=== PATIENT | male | born 1945 | race Caucasian/White ===

== ENCOUNTER → 2019-02-15 | Outpatient (CLI) | payer MEDICARE ==
[~2019-02-15] MED LIST: MULT-658 PO; coq-10 PO
== END | disposition home or self-care (01) ==
LOC: STAR 08:51
PROVIDERS: ATTEND Family Medicine
DX: D21.4 Benign neoplasm of connective and other soft tissue of abdomen (principal); Z01.818 Encounter for other preprocedural examination
CPT/HCPCS: 93005

== ENCOUNTER 2019-02-21 09:00 | Inpatient (IN) | payer MEDICARE ==
[~2019-02-21] VITALS: Ht 177.8 cm; Wt 92.1 kg
[~2019-02-21 09:00] MED LIST changes: +BUPIVACAINE/PF-EPI 0.5% 1:200K ONE
[2019-02-21] MEDS ORDERED: MIDAZOLAM 1 MG/ML, 2ML ONE (09:57)
[2019-02-21] MEDS ORDERED: FENTANYL PF 250 MCG/5ML ONE (09:57)
[2019-02-21] MEDS ORDERED: LACTATED RINGERS 1,000 ML IV SCH (10:00)
[2019-02-21] MEDS ORDERED: LIDOCAINE-MPF 1%, 2ML INFIL ONE (10:00)
[2019-02-21] MEDS ORDERED: DEXMEDETOMIDINE 200 MCG/2 ML ONE (10:42)
[2019-02-21] MEDS ORDERED: KETAMINE 10 MG/ML, 20ML ONE (10:42)
[2019-02-21] MEDS ORDERED: SUGAMMADEX 200 MG/2 ML IVPush ONE (10:42)
[2019-02-21] MEDS ORDERED: HALOPERIDOL 5 MG/ML IV PRN (11:30)
[2019-02-21] MEDS ORDERED: OXYcodone 5 MG/5 ML ORAL.SOL UDC PO PRN (11:30)
[2019-02-21] MEDS ORDERED: hydrALAzine 20 MG/ML, 1ML IV PRN (11:30)
[2019-02-21] MEDS ORDERED: PROMETHAZINE 25 MG/ML, 1ML IV PRN (11:30)
[2019-02-21] MEDS ORDERED: MEPERIDINE/PF 25MG/0.5ML IVPush PRN (11:30)
[2019-02-21] MEDS ORDERED: ACETAMINOPHEN 325 MG TABLET PO PRN ×2 (11:30→16:00)
[2019-02-21] MEDS ORDERED: FENTANYL PF 100 MCG/2ML IV PRN (11:30)
[2019-02-21] MEDS ORDERED: MEPERIDINE/PF 50 MG/ML ONE (11:49)
[2019-02-21] MEDS ORDERED: ONDANSETRON 2MG/ML, 2ML ONE (11:51)
[2019-02-21] MEDS ORDERED: DEXAMETHASONE 4 MG/ML, 1ML ONE (11:51)
[2019-02-21] MEDS ORDERED: BUPIVACAINE/PF 0.5% ONE (11:51)
[2019-02-21] MEDS ORDERED: CEFOTETAN PMX 2GM/50ML 50 ML ONE (11:51)
[2019-02-21] MEDS ORDERED: LIDOCAINE-MPF 2% ,5ML ONE (11:51)
[2019-02-21] MEDS ORDERED: ROCURONIUM 10MG/ML,5ML ONE (11:51)
[2019-02-21] MEDS ORDERED: PROPOFOL 10 MG/ML, 20ML ONE (11:51)
[2019-02-21] MEDS ORDERED: FENTANYL PF 100 MCG/2ML ONE ×2 (12:59→13:19)
[2019-02-21] MEDS ORDERED: HYDROmorphone 1 MG/ML, 1ML AMP ONE ×2 (13:53→14:25)
[2019-02-21] MEDS: HYDROmorphone 2 MG/ML, 1ML IVPush PRN ×5 (13:55→23:12)
[2019-02-21] MEDS ORDERED: PROMETHAZINE 25 MG/ML, 1ML ONE (14:04)
[2019-02-21] MEDS ORDERED: ONDANSETRON 2MG/ML, 2ML IV PRN (16:00)
[2019-02-21] MEDS ORDERED: ACETAMINOPHEN 650 MG SUPP PR PRN (17:00)
[2019-02-21] MEDS: POTASSIUM CHLORIDE 20 MEQ in D5%-0.45% NACL 1,000 ML IV SCH (18:10)
[2019-02-21 20:00] VITALS: BP 121/74
[2019-02-21] MEDS: KETOROLAC 30 MG/1 ML IV PRN (20:09)
[2019-02-21 22:52] VITALS: BP 116/76
[2019-02-21] MEDS: CEFOTETAN PMX 2GM/50ML 50 ML IVPB SCH (23:12)
[2019-02-22] MEDS: HYDROmorphone 2 MG/ML, 1ML IVPush PRN ×7 (03:07→20:58)
[2019-02-22 03:39] VITALS: BP 126/71
[2019-02-22 05:38] LABS: BASOPHILS # (AUTO) 0.02 x10^3/uL (0-0.1); BASOPHILS % (AUTO) 0 % (0-1); EOSINOPHILS % (AUTO) 0 % (1-7); LYMPHOCYTES # (AUTO) 0.48 x10^3/uL (1-3.4); LYMPHOCYTES % (AUTO) 3 % (22-44); MD NO; MEAN CORPUSCULAR HEMOGLOBIN 30.4 pg (27.5-34.5); MEAN CORPUSCULAR HGB CONC 34.1 g/dL (33.2-36.2); MEAN CORPUSCULAR VOLUME 89.2 fL (81-97); MEAN PLATELET VOLUME 7.7 fL (7.4-10.4); MONOCYTES # (AUTO) 0.85 x10^3/uL (0.2-0.8); MONOCYTES % (AUTO) 6 % (2-9); NEUTROPHILS # (AUTO) 12.77 x10^3/uL (1.8-6.8); NEUTROPHILS % (AUTO) 91 % (42-75); PLATELET COUNT 324 x10^3/uL (130-400); RED BLOOD COUNT 4.75 x10^6/uL (4.38-5.82); RED CELL DISTRIBUTION WIDTH 13.4 % (9.4-14.8)
[2019-02-22 05:47] LABS: ALANINE AMINOTRANSFERASE 31 U/L (12-78); ALBUMIN 3.2 g/dL (3.4-5.0); ANION GAP 7 mmol/L (5-15); CALCIUM 8.4 mg/dL (8.5-10.1); CHLORIDE 112 mmol/L (98-107); CREATININE 1.57 mg/dL (0.7-1.3)
[2019-02-22 05:49] LABS: ALKALINE PHOSPHATASE 88 U/L (45-117); BILIRUBIN,TOTAL 0.8 mg/dL (0.2-1.0); TOTAL PROTEIN 6.9 g/dL (6.4-8.2)
[2019-02-22] MEDS: POTASSIUM CHLORIDE 20 MEQ in D5%-0.45% NACL 1,000 ML IV SCH ×2 (06:20→18:15)
[2019-02-22 07:55] VITALS: BP 116/70
[2019-02-22] MEDS: ENOXAPARIN 40 MG/0.4 ML SQ SCH (08:49)
[2019-02-22] MEDS: CEFOTETAN PMX 2GM/50ML 50 ML IVPB SCH (11:37)
[2019-02-22] MEDS: KETOROLAC 30 MG/1 ML IV PRN ×2 (12:49→19:18)
[2019-02-22 15:25] VITALS: BP 100/63
[2019-02-22 19:33] VITALS: BP 102/63
[2019-02-23] MEDS: KETOROLAC 30 MG/1 ML IV PRN ×4 (02:01→21:53)
[2019-02-23] MEDS: POTASSIUM CHLORIDE 20 MEQ in D5%-0.45% NACL 1,000 ML IV SCH ×3 (02:02→21:53)
[2019-02-23 02:26] VITALS: BP 150/79
[2019-02-23] MEDS: HYDROmorphone 2 MG/ML, 1ML IVPush PRN ×4 (05:38→18:47)
[2019-02-23 06:01] LABS: ANION GAP 5 mmol/L (5-15); CALCIUM 8.8 mg/dL (8.5-10.1); CHLORIDE 111 mmol/L (98-107)
[2019-02-23 07:45] VITALS: BP 130/70
[2019-02-23] MEDS: ENOXAPARIN 40 MG/0.4 ML SQ SCH (08:35)
[2019-02-23 14:40] VITALS: BP 145/78
[2019-02-23 20:01] VITALS: BP 137/73
[2019-02-24 02:23] VITALS: BP 131/72
[2019-02-24] MEDS: KETOROLAC 30 MG/1 ML IV PRN ×2 (04:09→13:27)
[2019-02-24 08:53] VITALS: BP 157/79
[2019-02-24 13:16] VITALS: BP 167/75
[2019-02-24] MEDS: POTASSIUM CHLORIDE 20 MEQ in D5%-0.45% NACL 1,000 ML IV SCH ×2 (13:24→20:03)
[2019-02-24] MEDS: ENOXAPARIN 40 MG/0.4 ML SQ SCH (13:26)
[2019-02-24] MEDS ORDERED: BENZOCAINE AEROSOL SPRAY 20%, 60ML TP ONE (20:30)
[2019-02-24 20:39] VITALS: BP 158/82
[2019-02-24] MEDS: HYDROmorphone 2 MG/ML, 1ML IVPush PRN (20:52)
[2019-02-25] MEDS: HYDROmorphone 2 MG/ML, 1ML IVPush PRN ×3 (01:20→20:25)
[2019-02-25 01:42] VITALS: BP 135/73
[2019-02-25] MEDS: POTASSIUM CHLORIDE 20 MEQ in D5%-0.45% NACL 1,000 ML IV SCH ×2 (05:07→15:28)
[2019-02-25 08:34] VITALS: BP 116/74
[2019-02-25] MEDS ORDERED: OMNIPAQUE 350 MG/ML, 150 ML BOTTLE ONE (10:21)
[2019-02-25] MEDS: ENOXAPARIN 40 MG/0.4 ML SQ SCH (12:49)
[2019-02-25 13:58] VITALS: BP 119/72
[2019-02-25 20:00] VITALS: BP 133/62
[2019-02-26] MEDS: POTASSIUM CHLORIDE 20 MEQ in D5%-0.45% NACL 1,000 ML IV SCH (01:56)
[2019-02-26 02:07] VITALS: BP 141/71
[2019-02-26] MEDS: HYDROmorphone 2 MG/ML, 1ML IVPush PRN (03:00)
[2019-02-26 08:01] VITALS: BP 158/76
[2019-02-26] MEDS ORDERED: ACETAMINOPHEN 325 MG/10.15 ML UDC PO SCH (08:30)
[2019-02-26] MEDS ORDERED: OXYcodone 5 MG/5 ML ORAL.SOL UDC PO PRN ×2 (08:30)
[2019-02-26] MEDS ORDERED: ACETAMINOPHEN 650 MG/20.3 ML UDC PO SCH (09:00)
[2019-02-26] MEDS ORDERED: TYLENOL LIQUID (09:22)
[2019-02-26] MEDS ORDERED: ACETAMINOPHEN PO (09:23)
[2019-02-26] MEDS ORDERED: IBUP100O24 PO (09:24)
[2019-02-26] MEDS ORDERED: OXYCODONE PO (09:47)
[2019-02-26 09:55] VITALS: BP 138/71
[2019-02-26] MEDS ORDERED: IBUPROFEN 600 MG TABLET PO SCH (12:00)
== END 2019-02-26 10:57 | disposition home or self-care (01) | DRG 326 ==
LOC: ORIP 09:27 → 4NOR 15:30 → DCLOUNGE 02-26 10:37
PROVIDERS: ADMIT Surgery; ATTEND Surgery
PROC: 0D160ZA Bypass Stomach to Jejunum, Open Approach (ICD-10-PCS; 2019-02-21)
PROC: 0WJG4ZZ Inspection of Peritoneal Cavity, Percutaneous Endoscopic Approach (ICD-10-PCS; 2019-02-21)
PROC: 0DB60ZZ Excision of Stomach, Open Approach (ICD-10-PCS; principal; 2019-02-21 11:00)
DX: C16.9 Malignant neoplasm of stomach, unspecified (principal); N17.0 Acute kidney failure with tubular necrosis; C78.6 Secondary malignant neoplasm of retroperitoneum and peritoneum; Z87.891 Personal history of nicotine dependence; Z88.6 Allergy status to analgesic agent
CPT/HCPCS: 36415; 74245; 80048; 80053; 85025; 86850; 86900; 88305; 88307; 88309; 88331; 88341; 88342; G0378; J1100; J1170; J1650; J1885; J2175; J2250; J2405; J2550; J2704; J3010; J3480; J3490; Q9967